=== PATIENT | male | born 1990 | race Caucasian/White ===

== ENCOUNTER 2022-11-05 19:35 | Emergency (ER) | payer OTHER, SELFPAY ==
[2022-11-05 19:38] VITALS: BP 154/89; PULSE 83; RESP 18; TEMP 36.9; O2SAT 99; BMI 26.3
--- NOTE | 2022-11-05 20:28 | PC.NURSE ---
Pt reports rash began after running and chaffing. Provider made aware.
--- NOTE | 2022-11-05 21:14 | ED.SKABFB ---
HPI - Skin/Abscess/Foreign Bdy General Chief complaint: Skin/Abscess/Foreign Body Stated complaint: Rash thighs and legs Time Seen by Provider: 11/05/22 21:14 Source: patient Mode of arrival: Ambulatory Limitations: no limitations History of Present Illness HPI narrative: Patient 32-year-old male who presents today with groin rash ongoing for the last 2 weeks. Reports that he was going on the longest run he started to notice rash use some [id number] clotrimazole topical cream twice daily for a week he reports no improvement from it. He says it is now just weeping. No fever or chills he thought he had some cervical lymph nodes. No fevers. He reports that he is not new to running he has had chafing and things before. He has been trying to keep it dry with talc and corn starch. He reports that it is clean now without any sort topical treatment on it. Related Data Previous Rx's Medication Instructions Recorded ciclopirox 8 % topical solution 1 applic topical BID 4 weeks #6.6 11/05/22 mL Allergies Allergy/AdvReac Type Severity Reaction Status Date / Time No Known Drug Allergies Allergy Verified 11/05/22 19:38 Review of Systems Review of Systems ROS Unobtainable: All systems reviewed & are unremarkable except as noted in HPI and below Patient History Social History Smoking Status: Never smoker Smoking Status: Never smoker Substance Use Type: does not use Exam Initial Vital Signs Initial Vital Signs: Vital Signs Temperature 98.5 F 11/05/22 19:38 Pulse Rate 83 11/05/22 19:38 Respiratory Rate 18 11/05/22 19:38 Blood Pressure 154/89 H 11/05/22 19:38 Pulse Oximetry 99 11/05/22 19:38 Oxygen Delivery Method Room Air 11/05/22 19:38 GENERAL: Well-appearing, well-nourished and in no acute distress. CARDIOVASCULAR: peripheral pulses in tact, cap refill <2 sec RESPIRATORY: No respiratory distress, speaks in full sentences without difficulty ABDOMEN: Soft, nontender, no guarding or rebound : Rash noted on anterior bilateral medial thigh with good demarcation slight wet and weeping, no testicular involvement it does go into the buttock region. EXTREMITIES: Normal range of motion, no clubbing or edema. Neurovascularly intact NEUROLOGICAL: Cranial nerves II through XII grossly intact. Normal gait and speech. SKIN: Warm, dry, no petechiae, no rashes or lesions. Course Vital Signs Vital signs: Vital Signs - 8 hr 11/05/22 19:38 11/05/22 21:52 Temperature 98.5 F 98 F Pulse Rate 83 85 Respiratory Rate 18 16 Blood Pressure 154/89 H 141/63 H Pulse Oximetry 99 98 Oxygen Delivery Method Room Air Room Air MDM - Skin/Abscess/Foreign Bdy MDM Narrative Medical decision making narrative: Patient healthy 32-year-old male who presents with rash ongoing for about 2 weeks. Rash is consistent with tinea cruris. No superinfection with cellulitis noted at this time. Recommended appropriate treatment for 2-4 weeks if he fails then may need pill as well. At this time he is no evidence of sepsis no concern for necrotizing fasciitis or Binu's gangrene. Discharge Plan Departure Patient Disposition: Home Clinical Impression: Tinea cruris Instructions: Jock Itch Activity Restrictions/Additional Instructions: *You have been diagnosed with tinea cruris, jock itch *What to do: At this time keep area clean and dry as much as possible. I would avoid putting talc or other substances on it. This can take up to 1 month to completely resolved. You may require an or all pill with cream as well. *Continue to take medications as directed Ciclopirox twice day for 4 weeks--> [facility] *Follow up with your primary care provider in 2-3 days or call [phone] *Return to ER if you should have increasing redness fever pain [or] any new, worsening or concerning symptoms Prescriptions: New ciclopirox 8 % solution 1 applic topical BID 28 Days Qty: 6.6 0RF Referrals: Miscellaneous,Doctor, [Primary Care Provider] - Stand Alone Forms: Patient Portal/API
[2022-11-05 21:52] VITALS: BP 141/63; PULSE 85; RESP 16; TEMP 36.6; O2SAT 98
== END 2022-11-05 21:53 | disposition home or self-care (01) ==
PROVIDERS: Emergency Provider Emergency Medicine
DX: B35.6 Tinea cruris (principal)
CPT/HCPCS: 99281; 99283

== ENCOUNTER → 2024-12-13 10:24 | Outpatient (CLI) | payer OTHER, SELFPAY ==
--- NOTE | 2024-12-13 10:54 | DI.RAD.S_ITS ---
PROCEDURE: XR THORACIC SPINE 2V
--- NOTE | 2024-12-13 10:57 | DI.RAD.S_ITS ---
PROCEDURE: XR LUMBAR SPINE 2-3V
== END ==
PROVIDERS: PCP Family Medicine; Referring Provider Family Medicine; Visit Provider Family Medicine
DX: Z00.00 Encounter for general adult medical examination without abnormal findings (principal)
CPT/HCPCS: 72070; 72100

== ENCOUNTER → 2024-12-25 07:42 | Outpatient (CLI) | payer OTHER, SELFPAY ==
[2024-12-25 08:16] LABS: Hematocrit 47.3 % (41-53); Hemoglobin 16.7 g/dL (13.5-17.5); Mean Corpuscular HGB Conc 35.4 % (30-36); Mean Corpuscular Hemoglobin 30.8 PG (26-34); Mean Corpuscular Volume 87.0 fL (80-100); Platelet Count 260 X10^3/uL (150-400)
[2024-12-25 08:50] LABS: Alanine Aminotransferase 40 IU/L (<50); Albumin 4.8 g/dL (3.5-5.0); Albumin Globulin Ratio 1.8 (1.0-2.8); Alkaline Phosphatase 60 U/L (38-126); Blood Urea Nitrogen 18 mg/dL (9-20); Calcium 9.8 mg/dL (8.4-10.2); Carbon Dioxide 24 mmol/L (22-32); Chloride 103 mmol/L (98-107); Cholesterol 111 mg/dL (140-199); Estimated Glomerular Filt Rate > 60 mL/min (>60); Globulin 2.6 g/dL (1.7-4.1); Glucose 91 mg/dL (70-99); HDL Cholesterol 47 mg/dL (40-60); HEMOLYSIS 16 (0-50); Potassium 4.4 mmol/L (3.4-5.1); Sodium 139 mmol/L (137-145); Total Protein 7.4 g/dL (6.3-8.2); Triglycerides 67 mg/dL (35-150)
[2024-12-25 09:07] LABS: Vitamin D 25 Hydroxy (D3) 24.8 ng/mL (30.0-100.0)
== END ==
PROVIDERS: PCP Family Medicine; Referring Provider Family Medicine; Visit Provider Family Medicine
DX: Z00.00 Encounter for general adult medical examination without abnormal findings (principal); E87.8 Other disorders of electrolyte and fluid balance, not elsewhere classified; Z13.9 Encounter for screening, unspecified; Z13.21 Encounter for screening for nutritional disorder; Z13.220 Encounter for screening for lipoid disorders
CPT/HCPCS: 36415; 80053; 80061; 82306; 85027